=== PATIENT | female | born 1990 | race Hispanic/Latino ===

== ENCOUNTER 2025-04-20 08:26 | Emergency (ER) | payer MEDICAID, SELFPAY ==
[2025-04-20 08:38] VITALS: BP 126/90; PULSE 81; RESP 14; TEMP 36.4; O2SAT 99
--- NOTE | 2025-04-20 09:23 | ED.GENADULT ---
HPI - General Adult General Chief complaint: Allergic Reaction Stated complaint: right ear pain Time Seen by Provider: 04/20/25 09:01 Source: patient Mode of arrival: ambulatory Limitations: no limitations History of Present Illness HPI narrative: Patient is a 34-year-old female who presents the ED with report of right ear pain. Patient is primarily [place]-speaking. [employer] control systems developer was utilized for assistance with translation. Patient reports she developed pain throughout her right ear last night. Reports pressure and decreased hearing of right ear. Denies drainage from here. Denies left ear pain. Denies fevers. Patient is currently 20 weeks gestation. Related Data Allergies Allergy/AdvReac Type Severity Reaction Status Date / Time No Known Allergies Allergy Verified 04/20/25 08:41 Review of Systems Review of Systems: All systems reviewed & are unremarkable except as noted in HPI. All systems reviewed & are unremarkable except as noted in HPI and below Exam Narrative: GENERAL: Well appearing, obese with BMI 38.5, non-toxic, in no acute distress. HEAD: Normocephalic, atraumatic. ENT: Left TM clear and normal. Right TM without significant erythema or bulging. R EAC with significant swelling, erythema. No drainage. TTP with manipulation of pinna. RESPIRATORY: Airway patent, respirations nonlabored. CARDIOVASCULAR: Regular rate and rhythm MUSCULOSKELETAL: Moves all extremities. No gross deformities. SKIN: Warm, dry, normal color. NEURO: A&O X3. Speech clear. PSYCHIATRIC: Appropriate mood and affect. Normal interaction. Course Vital Signs Vital signs: Vital Signs Temperature 97.6 F 04/20/25 08:38 Pulse Rate 81 04/20/25 08:38 Respiratory Rate 14 04/20/25 08:38 Blood Pressure 126/90 04/20/25 08:38 Pulse Oximetry 99 04/20/25 08:38 Oxygen Delivery Room Air 04/20/25 08:38 Temperature 97.6 F 04/20/25 08:38 Pulse Rate 81 04/20/25 08:38 Respiratory Rate 14 04/20/25 08:38 Blood Pressure 126/90 04/20/25 08:38 Pulse Oximetry 99 04/20/25 08:38 Oxygen Delivery Room Air 04/20/25 08:38 Medical Decision Making MDM Narrative Medical decision making narrative: Exam consistent with right otitis externa. Will treat for such. Patient is currently . Neomycin/polymyxin/hydrocortisone otic drops ordered. These are safe in . Advised to continue Tylenol. Given return precautions. Discharged in stable condition. Medical Records Medical records reviewed: Yes I reviewed the external patient's medical records. Vital Signs Vital Signs: Vital Signs Temperature 97.6 F 04/20/25 08:38 Pulse Rate 81 04/20/25 08:38 Respiratory Rate 14 04/20/25 08:38 Blood Pressure 126/90 04/20/25 08:38 Pulse Oximetry 99 04/20/25 08:38 Oxygen Delivery Room Air 04/20/25 08:38 Temperature 97.6 F 04/20/25 08:38 Pulse Rate 81 04/20/25 08:38 Respiratory Rate 14 04/20/25 08:38 Blood Pressure 126/90 04/20/25 08:38 Pulse Oximetry 99 04/20/25 08:38 Oxygen Delivery Room Air 04/20/25 08:38 Discharge Plan Discharge Clinical Impression: Otitis externa Qualifiers: Otitis externa type: unspecified type Chronicity: acute Laterality: right Qualified Code(s): H60.501 - Unspecified acute noninfective otitis externa, right ear Patient Disposition: Home Condition: Stable Instructions: Antibiotic Form, Swimmer's Ear (ED), Ear Infection (ED) Additional Instructions: Utilize antibiotic ear drops as prescribed. Avoid putting anything into your ear. Continue Tylenol as needed for pain. Return for new or worsening concerns. Patient Language: Malaysian Prescriptions: New bndwckxa-vhjsrvpka-DR 3.5-10,000-1 mg/mL-unit/mL-% drops,suspension 4 drp RIGHT EAR Q8H 7 Days Qty: 10 0RF Follow-up/Referrals: UNKNOWN,DOCTOR [Primary Care Provider] Time of Disposition: :29
--- OUTSIDE RECORDS SUMMARY | 2025-04-20 09:25 | XMS_ITS | Clinical Summary ---
Author Organization [facility] Address [address] [place] [address] Care Team Providers Care Enterprise Account Manager Name Role Phone Unavailable Primary Care Provider Unavailabl e Source Comments [facility],non-owned Affiliates and Associated Physician Practices is amultiple site organization consisting of ambulatory clinics and hospital sitesin [place], [place], [place] and [place]. This disclosure is being madepursuant to the Care Everywhere program and may not contain all information available regarding this patient. Last updated 18.[facility] Allergies No known active allergies Medications * Be aware that medications may not be up to date on this document. Alwaysverify current medications with the patient. Vit-DSS-Fe Fum-FA ( vitamin with iron) tablet Take 1 (one) tablet by mouth once daily Active ondansetron, disintegrating, (Zofran ODT) 4 MG tabletIndicatio ns:Nausea and/or Vomiting in Take 1 (one) tablet by mouth every 6 hours as needed for Nausea/Vomitin g Allow tablet to dissolve on the tongue Reasons: Nausea and Vomiting in Active Encounters Date Type Department Care Team Description 04/15/2025 8:45 AM CDT - 04/15/2025 11:59 PM CDT Hospital Encounter [facility] [address] [place] [id number] Ethel Forbes MD Discharge Disposition: Home or Self Care 04/01/2025 7:19 AM CDT - 04/01/2025 11:59 PM CDT Hospital Encounter [facility] [address] [place] [id number] Stanley Sexton MD Discharge Disposition: Home or Self Care 03/16/2025 12:38 PM CDT - 03/16/2025 11:59 PM CDT Hospital Encounter [facility] [address] [place] [address] Stanley Sexton MD Discharge Disposition: Home or Self Care 03/16/2025 12:34 PM CDT - 03/16/2025 12:37 PM CDT Hospital Encounter [facility] [address] Stanley Sexton MD Discharge Disposition: Home or Self Care from Last 3 Months Family History Medical History Relation Name Comments Hypertension Maternal Grandfather Relation Name Status Comments Maternal Grandfather Social History Tobacco Use Types Packs/Day Years Used Date Smoking Tobacco: Never Smokeless Tobacco: Never Tobacco Cessation:Counseling Given: Not Answered Alcohol Use Standard Drinks/Week Comments Not Currently 0 (1 standard drink = 0.6 oz pur e alcohol) Estimated Date of Delivery Comme nts Yes 09/08/2025 Based on Ultraso und Sex and Gender Information Value Date Recorded Sex Assigned at Not on file Legal Sex Female 9:03 AM CDT Gender Identity Not on file Sexual Orientation Not on file Last Filed Vital Signs Vital Sign Reading Time Taken Comments Blood Pressure 127/88 03/16/2025 2:08 PM CDT Pulse 71 03/16/2025 2:08 PM CDT Temperature - - Respiratory Rate - - Oxygen Saturation - - Inhaled Oxygen Concentration - - Weight 111.6 kg (246 lb) 03/16/2025 1:42 PM CDT Height 165.1 cm (5' 5) 03/16/2025 1:42 PM CDT Body Mass Index 40.94 03/16/2025 1:42 PM CDT Plan of Treatment Upcoming Encounters Date Type Department Care Team (Late st Contact Info) Description 05/04/2025 8:15 AM CDT Appointment [facility] [address] [place] [id number] 05/09/2025 1:00 PM CDT Appointment [facility] [address] [place], [place] [id number] Health Maintenance Due Date Last Done Comments HIV SCREENING 11/21/2003 HEPATITIS C SCREENING 11/16/2006 DTAP/TDAP/TD VACCINES (1 - Tdap) 11/21/2007 HEPATITIS B VACCINE (1 of 3 - 19+ 3-dose series) 11/21/2007 PAP SMEAR 2009 HPV VACCINE (1 - 3-dose SCDM series) 11/21/2015 COVID-19 VACCINE (1 - 2023-2 5 season) 2024 DEPRESSION SCREENING 08/25/2024 INFLUENZA VACCINE (#1) 2025 Respiratory Syncytial Virus (RSV) Vaccine Pt: or over 60 yrs (1 - Risk 1-dose series) 07/14/2025 ZOSTER VACCINE (1 of 2) 2038 HIB VACCINE Aged Out No longer eligi ble based on patient's age to complete this topic MENINGOCOCCAL (Group B) VACC INE SHARED DECISION-MAKING Aged Out No longer eligibl e based on patient's age to complete this topic MENINGOCOCCAL GROUPS A/C/Y/W VACCINE Aged Out No longer eligible b ased on patient's age to complete this topic PNEUMOCOCCAL VACCINE Aged Out No long er eligible based on patient's age to complete this topic Procedures Procedure Name Priority Date/Time Associated Diagnosis Comments SONOGRAM - COMPLETE Routine 04/15/2025 8:47 AM CDT History of delivery, currently ([facility]) Antepartum multigravida of advanced maternal age ([facility]) 18 weeks gestation of ([facility]) Encounter for screening for cervical length ([facility]) Encounter for ultrasound to assess growth ([facility]) Encounter for follow-up ultrasound of anatomy ([facility]) SONOGRAM - COMPLETE Routine 04/01/2025 7:33 AM CDT History of delivery, currently ([facility]) Antepartum multigravida of advanced maternal age ([facility]) Second ([facility]) Encounter for anatomic survey ([facility]) 17 weeks gestation of ([facility]) SONOGRAM - COMPLETE Routine 03/16/2025 1:16 PM CDT History of delivery, currently ([facility]) Antepartum multigravida of advanced maternal age ([facility]) Encounter for anatomic survey ([facility]) Second ([facility]) from Last 3 Months Results * Sonogram - Complete (04/15/2025 8:47 AM CDT) Only the most recent of3 resultswithin the time period is included. Linked Results Indication ======== Advanced maternal age (AMA), multigravida Obesity complicating , Class 3 - BMI of 40.0 or greater History of PTL/PTD in previous , currently anatomy evaluation History ====== OB History 2. Para 1 [id number] 1. live 12/01/16. Gest. age 35 w + 0 d. Details: Vaginal delivery, PTL/PTD Lab Tests Test Date Result NIPT Low risk, Female Maternal Assessment Physical Exam Height 165 cm, 5 ft 5 in. Weight 113 kg, 249 lb. Initial weight 111 kg, 244 lb. BMI 41.44 kg/m . Initial BMI 40.60 kg/m . Weight gain 2 kg, 5 lb Method ====== Transabdominal and transvaginal ultrasound examination. View: Sufficient ========= [place] . Number of fetuses: 1 Dating ====== Date Details Gest. age SUKI LMP 11/18/2024 21 w + 1 d 08/25/2025 U/S 04/15/2025 based upon AC, BPD, Femur, HC 19 w + 0 d 09/09/2025 Assigned dating based on ultrasound (AC, BPD, Femur, HC), selected on 03/16/2025 19 w + 1 d 09/08/2025 General Evaluation Cardiac activity present. FHR 152 bpm. Presentation: cephalic Placenta: Placental site: posterior. No previa seen Umbilical cord: Cord vessels: 3 vessel cord. Insertion site: normal insertion Amniotic fluid: Amount of AF: normal. MVP 3.3 cm Biometry BPD 41.4 mm 18w 4d 25% Hadlock HC 154.8 mm 18w 3d 13% Hadlock Cerebellum tr 20.1 mm 84% [place] Nuchal fold 3.4 mm AC 138.1 mm 19w 2d 48% Hadlock Femur 30.6 mm 19w 3d 56% Hadlock Humerus 28.9 mm 19w 3d 60% Isacc HC / AC 1.12 -/- 17% Hadlock Weight Calculation: EFW 281 g 49% Hadlock EFW (lb,oz) 0 lb 10 oz EFW by Hadlock (TRA-TM-XZ-FL) Head / Face / Neck Biometry: CM 3.9 mm 21% Nicolaides appropriate Growth Overview Exam date GA BPD (mm) HC (mm) AC (mm) FL (mm) HL (mm) EFW (g) 03/16/2025 14w 6d 25.9 23% 102 25% 90.4 68% 15.2 29% 15.2 29% 108 36% 04/15/2025 19w 1d 41.4 25% 154.8 13% 138.1 48% 30.6 56% 28.9 60% 281 49% Anatomy The following structures appear normal: Head / Neck Cranium. Lateral ventricles. Choroid plexus. Midline falx. Cavum septi pellucidi. Cerebellum. Cisterna magna. Thalami. Nuchal fold. Face Orbits. Heart / Thorax 3-vessel view. Situs. Right lung. Left lung. Diaphragm. Abdomen Cord insertion. Stomach. Kidneys. Bladder. Genitals. Spine Cervical spine. Thoracic spine. Lumbar spine. Sacral spine. Extremities / Skeleton Arms. Legs. The following structures could not be adequately visualized: Face Lips. Profile. Nose. Nasal bone. Heart / Thorax 4-chamber view. RVOT view. LVOT view. 4-xabanh-gvczbfm view. Aortic arch view. Bicaval view. Ductal arch view. Great vessels. Abdomen Bowel. Extremities / Skeleton Hands. Feet. sex: female. Maternal Structures Cervix reassuring Approach - Transvaginal: Cervical length 4.50 cm Funneling absent Right Ovary Not visualized Appearance: Adnexa appears normal Left Ovary Normal Impression ========= Single live intrauterine at 19w1d The size is appropriate Incomplete anatomical survey with no major malformations seen within the limitations of ultrasound The amniotic fluid volume is normal The transvaginal cervical length is reassuring Comment ======== ultrasound alone cannot detect all structural, genetic, or functional , placental, or maternal abnormalities Follow-up ======== Ultrasound in two weeks for cervical length surveillance Ultrasound in four weeks to reassess growth, cervical length, and complete the anatomical survey Coding ====== Procedures [id number]: US Preg Uterus Detailed [id number]: US Preg Uterus Transvaginal [facility] Doctolib PACS Anatomical Region Laterality Modality Other 04/15/2025 8:47 AM CDT Elvis Aldridge MD [facility] ORDERABLES Edited Result - Final from Last 3 Months Insurance MEDICAID - [place]
[2025-04-20] MEDS: NEOMYCIN/POLYMYXIN/HYDROCORT OT SUSP 10 ML BTL (*BKC) 3 DROP RIGHT EAR (09:44)
== END 2025-04-20 09:56 | disposition home or self-care (01) ==
PROVIDERS: Emergency Provider Physician Assistant
DX: O99.891 Other specified diseases and conditions complicating pregnancy (principal); H60.91 Unspecified otitis externa, right ear; Z3A.20 20 weeks gestation of pregnancy
CPT/HCPCS: 99283; A9270